=== PATIENT | male | born 1985 | race Caucasian/White ===

== ENCOUNTER 2021-11-20 12:20 | Emergency (ER) | payer SELFPAY ==
[2021-11-20 12:24] VITALS: BP 134/85; PULSE 72; TEMP 98; BMI 27.3
[2021-11-20] MEDS ORDERED: KETOROLAC TROMETHAMINE 30 MG/1 ML VIAL IM ONE (13:25)
[2021-11-20] MEDS ORDERED: KETOROLAC TROMETHAMINE 30 MG/1 ML VIAL ONE (13:35)
[2021-11-20] MEDS ORDERED: diphenhydrAMINE HCL 25 MG CAPSULE (FP) PO ONE ×2 (13:46→13:48)
== END 2021-11-20 13:46 | disposition home or self-care (01) ==
LOC: JERFT 12:20
PROC: 3E0233Z Introduction of Anti-inflammatory into Muscle, Percutaneous Approach (ICD-10-PCS; principal; 2021-11-20)
DX: K04.7 Periapical abscess without sinus (principal)
CPT/HCPCS: 99284-25